=== PATIENT | male | born 1955 | race Caucasian/White ===

== ENCOUNTER → 2021-04-23 | Outpatient (CLI) | payer OTHER | LOC: CAT 13:42 | PROVIDERS: ATTEND Internal Medicine | DX: Z13.6 Encounter for screening for cardiovascular disorders (principal); I25.10 Atherosclerotic heart disease of native coronary artery without angina pectoris ==

== ENCOUNTER → 2021-04-23 | Outpatient (CLI) | payer OTHER | LOC: SJCVC 12:47 | PROVIDERS: ATTEND Internal Medicine | DX: R94.31 Abnormal electrocardiogram [ECG] [EKG] (principal); I45.10 Unspecified right bundle-branch block; R07.2 Precordial pain; Z13.220 Encounter for screening for lipoid disorders; E78.5 Hyperlipidemia, unspecified; Z72.89 Other problems related to lifestyle; Z79.82 Long term (current) use of aspirin; Z79.899 Other long term (current) drug therapy ==

== ENCOUNTER → 2021-05-27 | Outpatient (CLI) | payer OTHER | LOC: SJCVCIMAG | PROVIDERS: ATTEND Internal Medicine | DX: R94.31 Abnormal electrocardiogram [ECG] [EKG] (principal); I45.19 Other right bundle-branch block; I25.10 Atherosclerotic heart disease of native coronary artery without angina pectoris; I82.90 Acute embolism and thrombosis of unspecified vein; E78.5 Hyperlipidemia, unspecified; Z72.89 Other problems related to lifestyle; Z79.82 Long term (current) use of aspirin; Z79.899 Other long term (current) drug therapy ==

== ENCOUNTER → 2021-05-31 | Outpatient (CLI) | payer OTHER | LOC: SJCVCIMAG 06:49 | PROVIDERS: ATTEND Internal Medicine | DX: I45.10 Unspecified right bundle-branch block (principal); R06.02 Shortness of breath; E78.00 Pure hypercholesterolemia, unspecified; Z68.32 Body mass index [BMI] 32.0-32.9, adult; E78.5 Hyperlipidemia, unspecified; Z79.899 Other long term (current) drug therapy; Z72.89 Other problems related to lifestyle ==

== ENCOUNTER → 2021-06-11 | Outpatient (CLI) | payer OTHER ==
[~2021-06-11] MED LIST: ASA81BEC PO; CARVEDILOL3.125 MG PO; EFFIENT10 MG PO; ELIQUIS5 MG PO; ROSUVASTATIN CA20 MG PO
== END ==
LOC: SJCVC 09:18
PROVIDERS: ATTEND Internal Medicine
DX: I25.10 Atherosclerotic heart disease of native coronary artery without angina pectoris (principal); E78.5 Hyperlipidemia, unspecified; E78.00 Pure hypercholesterolemia, unspecified; Z72.89 Other problems related to lifestyle; Z79.82 Long term (current) use of aspirin; Z79.899 Other long term (current) drug therapy

== ENCOUNTER 2021-06-14 07:52 | Observation (INO) | payer OTHER ==
[2021-06-14] VITALS (11 sets, daily range): BP systolic 102–1123; BP diastolic 68–83
[~2021-06-14] VITALS: Ht 182.9 cm; Wt 108.4 kg
[2021-06-14] MEDS ORDERED: ELIQUIS5 MG PO (09:25)
[2021-06-14] MEDS ORDERED: ASA81BEC PO (09:26)
[2021-06-14] MEDS ORDERED: CARVEDILOL3.125 MG PO (09:27)
[2021-06-14] MEDS ORDERED: ROSUVASTATIN CA20 MG PO (09:27)
--- NOTE | 2021-06-14 14:39 | CATHLAB ---
[facility] [place] [address] INVASIVE PROCEDURE REPORT Name: TRAVIS OTT Room #: 200-I [facility] Darwin M.RAlexa#: [id number] Admission: 06/14/21 Attend Phys: Eren Carrasquillo MD Discharge: Date of : 53 Report #: [id number] THIS REPORT FOR: cc: Andrew Fish MD, David P. MD Park, Jin S. MD ~ APPROVED REPORT Study performed: 06/14/2021 09:45:48 Patient Details Patient Status: Out-Patient Room #: The patient is a 65 year-old male Event Personnel Eren Carrasquillo Lead Cook, Phoebe Hoover Monitor, Phoebe Hoover Monitor, Lorri Barone RTR Edison Tomas Dexter RN lockstitcher Performed Art Access - R femoral artery* Left Heart Cath w/or w/o Coronaries [id number] [facility] w/wo Plasty Single LAD 828892 PTCA Single Vessel DIAG 2906149 PCISINGLE 01789 Initial Mod Sed Same Phys/QHP Gr5y 561291 94168 Mod Sed Same Phys/QHP Ea 006258 Hemostasis w/ Mynx Indication Dyspnea, CardiomyopathyPositive stress test, Chest pain Risk Factors Hypercholesterolemia, Coronary Artery Disease Previous Procedures/Diagnoses Previous CO Procedure Narrative The Right Groin^ was infiltrated with 1% Lidocaine subcutaneous anesthesia. A PINNACLE 4FR Sheath #[id number] sheath was inserted into the RFA 4F^. Coronary angiography was performed using coronary diagnostic catheters. The right coronary system was accessed and visualized with a JR4 catheter. The left coronary system was accessed and visualized with a JL4 catheter. The patient tolerated the procedure well and there were no complications associated with the procedure. There was no hematoma. [address] [address] INVASIVE PROCEDURE REPORT Name: TRAVIS OTT Valeria Room #: 200-I [facility] IN [facility]#: [id number] Admission: 06/14/21 Attend Phys: Eren Carrasquillo MD Discharge: Date of : 53 Report #: [id number] Intraoperative Conscious Sedation Sedation start time: 958 Case end Time: 1115 Fentanyl 50 mcg Versed 1 mg Fluoro Time: 15.30 minutes Dose: DAP 37303.40 cGycm2 3879 mGy Contrast Type and Amount: Omnipaque 230 ml Coronary Angiography The patient's coronary anatomy is right dominant. Diagnostic Cath Left Main The left main artery is a large-caliber vessel, patent with no flow-limiting lesions. LAD There is a severe, tortuous lesion in the proximal LAD segment, 95%. There is AMY II blood flow in the remaining LAD segments. Diagonal 1 This is a small caliber vessel, patent with no flow-limiting lesions. Diagonal 2 This vessel originates at the proximal LAD lesion site, obstructed at the ostium. Circumflex There is a moderate-sized caliber vessel, supplies 1 obtuse marginal artery at the distal segment. There is mild disease in the proximal segment, 30%. There is a borderline stenosis, 60% in the distal segment, just before the takeoff of OM1. OM1 There is a moderate-sized caliber vessel, travels the inferolateral wall. This vessel supplies several small branches. This vessel is patent with no flow-limiting lesions. Right Coronary The RCA is a dominant vessel with a mild stenosis in the proximal segment, 20%. R PDA This is a small to moderate-sized caliber vessel, patent with no flow-limiting lesions. RPLV There are several RPL branches, with no flow-limiting lesions. Left Ventriculography Left Ventriculography was not performed. Ejection Fraction was 45% based off patient's Echocardiogram. An LVEDP was measured and there is no gradient across the outflow tract. IVUS A diag. Interventional Guidewire was used. A Luge Wire .014 x 182CM #[id number] was used. [address] [address] INVASIVE PROCEDURE REPORT Name: TRAVIS OTT Room #: 200-I [facility] IN ..#: [id number] Admission: 06/14/21 Attend Phys: Eren Carrasquillo MD Discharge: Date of : 53 Report #: [id number] IVUS Findings [facility] RX 2.0 X 12 #[id number] Hemodynamics The aortic pressure is 105/65 mmHg with a mean of 82 mmHg. The left ventricular pressure is 113/9 mmHg with a mean of mmHg. The left ventricular end diastolic pressure is 20 mmHg. PCI Technique Lesion Percutaneous coronary intervention was performed on the Proximal LAD segment. The lesion stenosis prior to intervention was 95% with AMY 2 flow. A LAUNCHER 6FR JL4 #087016 Guide Catheter was used to engage the ostium. A Luge Wire .014 x 182CM #[id number] Interventional Guidewire was used to cross the lesion. BALLOON DILATION A Balloon catheter TREK RX 2.25 X 15 #[id number] was inserted and inflated up to 6.00atm for 12seconds. Additional Inflation: 8.00atm for 16seconds. Additional Inflation: 8.00atm for 17seconds. Additional inflations: 8 joseph for 11 sec/min and 8 joseph for 9 sec/min. STENT DEPLOYMENT A stent RESOLUTE DWIGHT OTW 2.5 X 18 #[id number] was inserted and inflated up to 16.00atm for 28seconds. 2nd stent was placed distal to first a 2.5mm x 12mm resolute was deployed at 12 joseph for 22 sec/min and 16 joseph for 14 sec/min. POST STENT DEPLOYMENT BALLOON DILATION A Balloon catheter Euphora NC RX 2.75 x 12 #[id number] was inserted and inflated up to 18.00atm for 22seconds. Additional Inflation: 18.00atm for 17seconds. Final angiography reveals 0 % stenosis with AMY 3 flow. COMMENTS After the first balloon dilatation of the proximal LAD segment, there was no reflow phenomenon in the LAD. AMY-3 blood flow was restored with auto perfusion. PCI Technique Lesion A Guide Catheter was used to engage the diag. ostium. A Luge Wire .014 x 182CM #[id number] Interventional Guidewire was used to cross the lesion. [facility] [address] [place] [address] INVASIVE PROCEDURE REPORT Name: TRAVIS OTT Room #: 200-I AD[facility] IN M.R.#: [id number] Admission: 06/14/21 Attend Phys: Eren Carrasquillo MD Discharge: Date of : 53 Report #: [id number] BALLOON DILATION A Balloon catheter TREK NC RX 2.0 X 12 #[id number] was inserted and inflated up to 8atm for 22seconds. PCI Technique Lesion 2 Percutaneous Coronary Intervention was performed on the first diagnonal branch segment. The lesion stenosis prior to intervention was 100% with AMY 1 flow. Balloon Dilation A Balloon catheter TREK NC RX 2.0 X 12 #[id number] was inserted and inflated up to 8atm for 12seconds. Final angiography reveals 10 % stenosis with AMY 3 flow. Conclusion 1. PCI performed with placement of a drug-eluting stent into the proximal LAD stenosis, with orthodoxy of AMY-3 blood flow. 2. PCI performed with balloon angioplasty involving the ostial second diagonal artery, with orthodoxy of AMY-3 blood flow. 3. At least mild segmental LV dysfunction. 4. Recommend dual antiplatelet therapy and aggressive risk factor management. <ELECTRONICALLY SIGNED> By: Eren Carrasquillo MD 06/14/21 1439 1439 143 Eren Carrasquillo MD /INF
[2021-06-14] MEDS ORDERED: EFFIENT10 MG PO (14:41)
[2021-06-15 04:51] LABS: HEMATOCRIT 44.6 % (42.0-52.0); MCH 28.9 pg (26.0-34.0); MCHC 33.6 g/dL (28.0-37.0); MCV 86.1 fL (80.0-100.0); RBC 5.18 mil/uL (4.50-6.00); RDW 13.7 % (10.5-14.5); WBC 8.5 thou/uL (4.0-11.0)
--- NOTE | 2021-06-15 05:00 | NUR ---
PATIENT AAOX4 RESTING IN HIS ROOM. PATIENT IS CALM COOPERATIE AND COMPLIANT. DENIES ANY PAIN THROUGH THIS SHIFT. IS ABLE TO AMBULATE UNDER HIS OWN POWER AND IS STEADY. GROIN SITE IS SOFT AND SHOWS NO S/S OF SWELLING OR HEMATOMA FORMATION. DRESSING IS CDI. PULSES ARE STRONG AND EQUAL BILATERALLY. VSS. TOLERATING ALL FLUIDS AND PO NUTRITION. SKIN IS WARM AND DRY. ALL SAFETY PRECAUTIONS ARE IN PLACE. WILL CONTINUE TO MONITOR FOR CHANGES IN STATUS.
[2021-06-15 05:36] VITALS: BP 112/68
[2021-06-15 05:57] LABS: ALBUMIN 3.3 g/dL (3.4-5.0); POTASSIUM 3.9 mmol/L (3.5-5.1); TOTAL BILIRUBIN 0.7 mg/dL (0.2-1.0)
--- NOTE | 2021-06-15 06:53 | NUR ---
PATIENT RESTING IN BED DURING SHIFT. PATIENT OPENS EYES SPORATICALLY. REACTION TO VOICE AND PAIN, NON-VOCAL. DOES NOT FOLLOW COMMANDS. TUBE FEED GOAL WAS INCREASED TO 60ML. PATIENT TOLERATED WELL. ON TRACH SHIELD OXYGEN WAS INCREASED FROM 35 TO 50 DURING THE NIGHT. PATIENT IS CURRENTLY ON BASELINE. WAITING ON INSURANCE APPROVAL TO RETURN TO [facility]. PAPERWORK ON CHART.
--- NOTE | 2021-06-15 07:04 | EKG ---
[address] [employer] [address] [place] [address] ELECTROCARDIOGRAM REPORT Name: TRAVIS OTT Room #: 200-I [facility]#: [id number] Admission: 06/14/21 Attend Phys: Eren Carrasquillo MD Discharge: Date of : 53 Report #: [id number] [facility] Test Date: 2021-06-14 Test Time: 11:45:59 Pat Name: TRAVIS OTT Department: Room: 200 Gender: M Study Hall Supervisor: FSCHWALJHONATHAN : 1955 Requested By: Eren Carrasquillo Order Number: [id number] MD: Chintan Dias Measurements Intervals [place] Rate: 62 P: 39 DC: 171 QRS: 35 QRSD: 114 T: 102 QT: 450 QTc: 457 Interpretive Statements Sinus rhythm Incomplete right bundle branch block Anterolateral infarct, age indeterminate Abnormal T, consider ischemia, lateral leads No previous ECG available for comparison Electronically Signed On 06-15-2021 7:04:42 ESCROW MANAGER by Chintan Dias [email or web address] <ELECTRONICALLY SIGNED> By: Chintan Dias MD, [facility] 06/15/21 0704 1145 1145 Chintan Dias MD, FACC /EPI
[2021-06-15 08:17] VITALS: BP 106/52
--- NOTE | 2021-06-15 09:29 | EKG ---
[address] [address] ELECTROCARDIOGRAM REPORT Name: TRAVIS OTT Room #: 200-I [facility] M.R.#: [id number] Admission: 06/14/21 Attend Phys: Eren Carrasquillo MD Discharge: Date of : 53 Report #: [id number] [facility] Test Date: 2021-06-15 Test Time: 07:23:43 Pat Name: TRAVIS OTT Department: Room: 200 I Gender: M Psych Tech: : 1955 Requested By: Eren Carrasquillo Order Number: [id number] MD: Chintan Dias Measurements Intervals [place] Rate: 83 P: 45 CT: 158 QRS: -37 QRSD: 103 T: 97 QT: 387 QTc: 455 Interpretive Statements Sinus rhythm Left axis deviation Anterolateral infarct, age indeterminate Compared to ECG 06/14/2021 11:45:59 Left-axis deviation now present Incomplete right bundle-branch block no longer present T-wave abnormality no longer present Possible ischemia no longer present Myocardial infarct finding still present Electronically Signed On 06-15-2021 9:29:05 SHOE LAY OUT PLANNER by Chintan Dias [email or web address] <ELECTRONICALLY SIGNED> By: Chintan Dias MD, FACC 06/15/21 0929 2 2 Chintan Dias MD, [facility] /EPI
[2021-06-15 10:57] VITALS: BP 106/52
--- NOTE | 2021-06-15 11:32 | NUR ---
PATIENT DISCHARGED HOME. EDUACATION DONE WITH PT AND AT BEDSIDE. ALL QUESTIONS ANSWERED. NO CONCERNS AT TIME OF TEACHING. PATIENT AMBULATING IN ROOM BY SELF, ANTHONY. IV AND TELE REMOVED. TAKEN TO WAITING PRIVATE VEHCILE WHERE WAITS.
== END 2021-06-15 11:56 | disposition home or self-care (01) ==
LOC: CATH 07:52 → 2N 11:36
PROVIDERS: ADMIT Internal Medicine Cardiovascular Disease; ATTEND Internal Medicine Cardiovascular Disease
DX: I25.110 Atherosclerotic heart disease of native coronary artery with unstable angina pectoris (principal); E78.5 Hyperlipidemia, unspecified; I45.10 Unspecified right bundle-branch block; I42.9 Cardiomyopathy, unspecified; E78.00 Pure hypercholesterolemia, unspecified; Z79.899 Other long term (current) drug therapy

== ENCOUNTER → 2021-06-25 | Outpatient (CLI) | payer OTHER | LOC: SJCVC 11:12 → SJCVCIMAG 11:12 | PROVIDERS: ATTEND Internal Medicine | DX: I25.10 Atherosclerotic heart disease of native coronary artery without angina pectoris (principal); E78.00 Pure hypercholesterolemia, unspecified; I45.10 Unspecified right bundle-branch block; E78.5 Hyperlipidemia, unspecified; Z72.89 Other problems related to lifestyle; Z79.82 Long term (current) use of aspirin; Z79.899 Other long term (current) drug therapy ==

== ENCOUNTER → 2021-07-15 | Outpatient (CLI) | payer OTHER | LOC: SJCVC 14:29 | PROVIDERS: ATTEND Internal Medicine | DX: I51.3 Intracardiac thrombosis, not elsewhere classified (principal); R94.31 Abnormal electrocardiogram [ECG] [EKG]; E78.5 Hyperlipidemia, unspecified; Z72.89 Other problems related to lifestyle; Z79.899 Other long term (current) drug therapy ==

== ENCOUNTER → 2021-08-14 | Outpatient (CLI) | payer OTHER | LOC: SJCVCIMAG 07:25 | PROVIDERS: ATTEND Internal Medicine | DX: I25.10 Atherosclerotic heart disease of native coronary artery without angina pectoris (principal); R00.2 Palpitations; E78.00 Pure hypercholesterolemia, unspecified; I45.10 Unspecified right bundle-branch block; E78.5 Hyperlipidemia, unspecified; I48.0 Paroxysmal atrial fibrillation; R07.9 Chest pain, unspecified; Z72.89 Other problems related to lifestyle; Z79.899 Other long term (current) drug therapy ==